=== PATIENT | male | born 2000 | race Caucasian/White ===

== ENCOUNTER 2022-12-04 22:57 | Emergency (ER) | payer OTHER ==
[2022-12-04 23:13] VITALS: BP 133/64
[2022-12-05] MEDS ORDERED: BACITRACIN ZINC OINT 1 PACKET TOP STA (00:02)
[2022-12-05] MEDS ORDERED: cephALEXin 250 MG CAPSULE PO STA (00:03)
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
== END 2022-12-05 00:49 | disposition home or self-care (01) ==
LOC: ED 22:57
DX: T24.002A Burn of unspecified degree of unspecified site of left lower limb, except ankle and foot, initial encounter (principal); X76.XXXA Intentional self-harm by smoke, fire and flames, initial encounter; Y92.009 Unspecified place in unspecified non-institutional (private) residence as the place of occurrence of the external cause; L03.116 Cellulitis of left lower limb
CPT/HCPCS: 87070; 87181; 87205; 99283; A9270